=== PATIENT | female | born 1955 | race African-American/Black ===

== ENCOUNTER 2017-04-04 10:08 | Emergency (ER) | payer MEDICAID ==
[~2017-04-04 10:08] MED LIST: ATEN100T PO; IBUP-675 PO; NIFE60TA81 PO; VALS80TA2 PO
[2017-04-04] MEDS ORDERED: LORA10TA7 PO (10:13)
[2017-04-04] MEDS ORDERED: SERT100T12 PO (10:13)
[2017-04-04] MEDS ORDERED: LOSA50TA37 PO (10:13)
[2017-04-04 11:34] LABS: BASOPHILS % (AUTO) 0.7 % (0.0-2.0); EOSINOPHILS % (AUTO) 3.7 % (1.0-6.0); HEMOGLOBIN 11.6 g/dL (12.0-16.0); LYMPHOCYTES # (AUTO) 1.9 K/uL (1.0-4.8); MEAN CORPUSCULAR HEMOGLOBIN 27.3 pg (26.0-34.0); MEAN CORPUSCULAR HGB CONC 33.2 G/dL (31.0-37.0); MEAN CORPUSCULAR VOLUME 82 fL (80-100); MONOCYTES # (AUTO) 0.5 K/uL (0.1-1.0); NEUTROPHILS % (AUTO) 59.6 % (40.0-70.0); PLATELET COUNT (AUTO) 340 K/uL (150-450); RED BLOOD CELL COUNT(AUTO) 4.25 MIL/uL (4.00-5.20); RED CELL DISTRIBUTION WIDTH 15.2 % (11.5-14.5); WHITE BLOOD COUNT (AUTO) 6.7 K/uL (4.5-11.0)
[2017-04-04 11:45] LABS: ANION GAP 7 mmol/L (8-16); CALCIUM, TOTAL 8.9 mg/dL (8.8-10.5); CARBON DIOXIDE 29 mmol/L (22-29); CHLORIDE 104 mmol/L (98-107); GLOMERULAR FILTR. RATE CALC > 60 mL/min (>60); POTASSIUM 3.9 mmol/L (3.5-5.1); SODIUM SERUM 140 mmol/L (136-145); UREA NITROGEN, BLOOD 14 mg/dL (7-18)
[2017-04-04 11:50] LABS: ALANINE AMINOTRANSFERASE 32 U/L (12-78); ALBUMIN 3.6 g/dL (3.4-5.0); ASPARTATE AMINOTRANSFERASE 27 U/L (15-37); BILIRUBIN,TOTAL 0.3 mg/dL (0.1-1.0); TOTAL PROTEIN, SERUM 6.7 g/dL (6.4-8.2)
[2017-04-04 12:15] VITALS: BP 142/85
== END 2017-04-04 12:33 | disposition home or self-care (01) ==
LOC: EMS 10:14
DX: L30.9 Dermatitis, unspecified (principal); F41.9 Anxiety disorder, unspecified; F17.210 Nicotine dependence, cigarettes, uncomplicated; I10 Essential (primary) hypertension
CPT/HCPCS: 93005; 99285

== ENCOUNTER 2017-06-05 09:52 | Emergency (ER) | payer MEDICAID ==
[~2017-06-05] VITALS: Ht 162.6 cm; Wt 100.0 kg
[~2017-06-05 09:52] MED LIST changes: +LORA10TA7 PO; +LOSA50TA37 PO; +SERT100T12 PO; -VALS80TA2 PO
[2017-06-05] MEDS ORDERED: PredniSONE 20 MG TABLET PO ONE (10:15)
[2017-06-05] MEDS ORDERED: HydrOXYzine HCL 25 MG TABLET PO ONE (10:15)
[2017-06-05 12:23] VITALS: BP 151/91
== END 2017-06-05 12:27 | disposition home or self-care (01) ==
LOC: EMS 09:54
DX: T78.40XA Allergy, unspecified, initial encounter (principal); I10 Essential (primary) hypertension; F17.210 Nicotine dependence, cigarettes, uncomplicated; Z88.8 Allergy status to other drugs, medicaments and biological substances
CPT/HCPCS: 99283; J7512

== ENCOUNTER 2017-08-12 09:39 | Emergency (ER) | payer MEDICAID ==
[~2017-08-12] VITALS: Ht 157.5 cm; Wt 82.0 kg
[~2017-08-12 09:39] MED LIST changes: -IBUP-675 PO; -LORA10TA7 PO
[2017-08-12] MEDS ORDERED: HYDR-3110 PO (09:52)
[2017-08-12] MEDS ORDERED: LORA10TA7 PO (09:52)
[2017-08-12] MEDS ORDERED: HYDR25TA PO (10:10)
[2017-08-12] MEDS ORDERED: PredniSONE 20 MG TABLET PO ONE (10:45)
[2017-08-12] MEDS ORDERED: DiphenhydrAMINE/ZINC ACET 30 GM CREAM TP ONE ×2 (10:45)
[2017-08-12 11:45] VITALS: BP 152/88
== END 2017-08-12 11:52 | disposition home or self-care (01) ==
LOC: EMS 09:40
DX: L23.9 Allergic contact dermatitis, unspecified cause (principal); I10 Essential (primary) hypertension; F17.210 Nicotine dependence, cigarettes, uncomplicated; Z88.8 Allergy status to other drugs, medicaments and biological substances
CPT/HCPCS: 99283; 99406; J7512

== ENCOUNTER 2017-08-19 07:46 | Emergency (ER) | payer MEDICAID ==
[~2017-08-19] VITALS: Ht 157.5 cm; Wt 86.4 kg
[~2017-08-19 07:46] MED LIST changes: +HYDR-3110 PO; +HYDR25TA PO; +LORA10TA7 PO; -LOSA50TA37 PO
[2017-08-19] MEDS ORDERED: ACET-784 PO (07:55)
[2017-08-19] MEDS ORDERED: PredniSONE 20 MG TABLET PO ONE (08:45)
[2017-08-19] MEDS ORDERED: LORazepam 1 MG TABLET PO ONE (08:45)
[2017-08-19] MEDS ORDERED: DiphenhydrAMINE HCL 50 MG/ML VIAL IM ONE (08:45)
[2017-08-19 09:59] VITALS: BP 149/103
== END 2017-08-19 10:02 | disposition home or self-care (01) ==
LOC: EMS 07:48
DX: L30.9 Dermatitis, unspecified (principal); I10 Essential (primary) hypertension; F17.210 Nicotine dependence, cigarettes, uncomplicated; Z88.8 Allergy status to other drugs, medicaments and biological substances
CPT/HCPCS: 96372; 99283; 99406; J1200; J7512

== ENCOUNTER 2018-10-02 15:14 | Emergency (ER) | payer MEDICAID ==
[~2018-10-02] VITALS: Ht 157.5 cm; Wt 86.4 kg
[~2018-10-02 15:14] MED LIST changes: +ACET-784 PO
[2018-10-02] MEDS ORDERED: PERTUSS(ACELL),DIPH,TET VAC/PF 0.5 ML VIAL IM ONE (16:45)
[2018-10-02] MEDS ORDERED: LIDOCAINE 1% 10 ML VIAL INJ ONE (17:00)
[2018-10-02 17:05] VITALS: BP 124/89
[2018-10-02] MEDS ORDERED: BACITRACIN 0.9 GM PACKET OINTMENT TP ONE (17:45)
== END 2018-10-02 18:19 | disposition home or self-care (01) ==
LOC: EMS 15:15
DX: S51.011A Laceration without foreign body of right elbow, initial encounter (principal); I10 Essential (primary) hypertension; Z88.8 Allergy status to other drugs, medicaments and biological substances; Z79.899 Other long term (current) drug therapy; F17.210 Nicotine dependence, cigarettes, uncomplicated; W01.198A Fall on same level from slipping, tripping and stumbling with subsequent striking against other object, initial encounter; Y93.89 Activity, other specified; Y92.89 Other specified places as the place of occurrence of the external cause; Y99.8 Other external cause status
CPT/HCPCS: 12002; 73080; 90471; 90715; 99283; J3490

== ENCOUNTER 2019-08-30 17:35 | Emergency (ER) | payer MEDICAID ==
[~2019-08-30] VITALS: Ht 157.5 cm; Wt 86.4 kg
[~2019-08-30 17:35] MED LIST changes: -HYDR-3110 PO; +HYDR-3831 PO
[2019-08-30] MEDS ORDERED: FentaNYL CITRATE-PF 100 MCG/2 ML VIAL IVP ONE (17:45)
[2019-08-30 19:56] VITALS: BP 145/83
== END 2019-08-30 20:00 | disposition home or self-care (01) ==
LOC: EMS 17:37
DX: S43.101A Unspecified dislocation of right acromioclavicular joint, initial encounter (principal); F17.210 Nicotine dependence, cigarettes, uncomplicated; I10 Essential (primary) hypertension; Z88.8 Allergy status to other drugs, medicaments and biological substances; W01.0XXA Fall on same level from slipping, tripping and stumbling without subsequent striking against object, initial encounter; Y93.89 Activity, other specified; Y92.89 Other specified places as the place of occurrence of the external cause; Y99.8 Other external cause status
CPT/HCPCS: 23650; 73030; 99284; J3010

== ENCOUNTER 2024-05-29 15:34 | Emergency (ER) | payer MEDICARE, OTHER ==
[~2024-05-29] VITALS: Ht 152.4 cm; Wt 83.0 kg
[2024-05-29 15:40] VITALS: TEMP 99.2
[2024-05-29] MEDS ORDERED: CHLO25TA3 PO (15:59)
[2024-05-29] MEDS ORDERED: AMLO10TA55 PO (15:59)
[2024-05-29] MEDS ORDERED: ATOR20TA65 PO (15:59)
[2024-05-29] MEDS ORDERED: METF-444 PO (15:59)
[2024-05-29] MEDS: KETOROLAC TROMETHAMINE 30 MG/ML VIAL IM ONE (16:19)
[2024-05-29] MEDS: HYDROCODONE/ACETAMINOPHEN 5-325 MG TABLET PO ONE (17:12)
[2024-05-29 18:00] VITALS: BP 115/41; PULSE 75; RESP 15; O2SAT 93
[2024-05-29] MEDS ORDERED: HYDR-4062 PO (18:04)
== END 2024-05-29 18:35 | disposition home or self-care (01) ==
LOC: EMS 15:34
DX: M17.11 Unilateral primary osteoarthritis, right knee (principal); I10 Essential (primary) hypertension; F17.210 Nicotine dependence, cigarettes, uncomplicated; Z88.8 Allergy status to other drugs, medicaments and biological substances; Z79.84 Long term (current) use of oral hypoglycemic drugs; Z85.3 Personal history of malignant neoplasm of breast
CPT/HCPCS: 99283; 73562; 96372; J1885

== ENCOUNTER 2024-07-14 10:03 | Emergency (ER) | payer MEDICARE, OTHER ==
[~2024-07-14] VITALS: Ht 160 cm; Wt 84.1 kg
[~2024-07-14 10:03] MED LIST changes: -ACET-784 PO; +AMLO10TA55 PO; -ATEN100T PO; +ATOR20TA65 PO; +CHLO25TA3 PO; -HYDR-3831 PO; +HYDR-4062 PO; -HYDR25TA PO; -LORA10TA7 PO; +METF-444 PO; -NIFE60TA81 PO; -SERT100T12 PO
[2024-07-14] MEDS ORDERED: OXYC5 PO (12:37)
[2024-07-14 12:45] VITALS: BP 134/84; PULSE 98; RESP 17; O2SAT 97
[2024-07-14] MEDS: OxyCODONE HCL/ACETAMINOPHEN 5-325 MG TABLET PO ONE (12:53)
== END 2024-07-14 13:04 | disposition home or self-care (01) ==
LOC: EMS 10:12
DX: G89.18 Other acute postprocedural pain (principal); I10 Essential (primary) hypertension; F17.210 Nicotine dependence, cigarettes, uncomplicated; Z85.3 Personal history of malignant neoplasm of breast; Z79.84 Long term (current) use of oral hypoglycemic drugs; Z96.652 Presence of left artificial knee joint
CPT/HCPCS: 99283; 99406

== ENCOUNTER 2024-11-21 08:53 | Emergency (ER) | payer MEDICARE, OTHER ==
[~2024-11-21] VITALS: Ht 157.5 cm; Wt 77.3 kg
[~2024-11-21 08:53] MED LIST changes: -HYDR-4062 PO; +OXYC5 PO
[2024-11-21 09:02] VITALS: BP 118/78; PULSE 84; RESP 18; TEMP 98.2; O2SAT 99
[2024-11-21] MEDS ORDERED: DUPI200S SQ (09:02)
[2024-11-21] MEDS ORDERED: OXYC-38 PO (09:16)
[2024-11-21] MEDS ORDERED: POLY119P3 PO (09:16)
== END 2024-11-21 09:41 | disposition home or self-care (01) ==
LOC: EMS 09:03
DX: M17.11 Unilateral primary osteoarthritis, right knee (principal); I10 Essential (primary) hypertension; E11.9 Type 2 diabetes mellitus without complications; F17.210 Nicotine dependence, cigarettes, uncomplicated; Z79.84 Long term (current) use of oral hypoglycemic drugs; Z88.8 Allergy status to other drugs, medicaments and biological substances; Z85.3 Personal history of malignant neoplasm of breast
CPT/HCPCS: 82962; 99283

== ENCOUNTER 2025-03-29 08:00 | Emergency (ER) | payer MEDICARE, OTHER ==
[~2025-03-29] VITALS: Ht 152.4 cm; Wt 75.5 kg
[~2025-03-29 08:00] MED LIST changes: +DUPI200S SQ; +OXYC-38 PO; -OXYC5 PO; +POLY119P3 PO
[2025-03-29 08:08] VITALS: TEMP 97.7
[2025-03-29] MEDS ORDERED: METF-1211 PO (08:16)
[2025-03-29] MEDS ORDERED: CALC-1000 PO (08:16)
[2025-03-29] MEDS ORDERED: FERR325T27 PO (08:16)
[2025-03-29 09:45] VITALS: BP 139/85; PULSE 71; RESP 19; O2SAT 99
[2025-03-29] MEDS: ACETAMINOPHEN 500 MG TABLET PO ONE (10:34)
== END 2025-03-29 10:57 | disposition home or self-care (01) ==
LOC: EMS 08:00
DX: S46.912A Strain of unspecified muscle, fascia and tendon at shoulder and upper arm level, left arm, initial encounter (principal); M25.511 Pain in right shoulder; F17.210 Nicotine dependence, cigarettes, uncomplicated; E11.9 Type 2 diabetes mellitus without complications; I10 Essential (primary) hypertension; Z85.3 Personal history of malignant neoplasm of breast; Z98.890 Other specified postprocedural states; Z79.899 Other long term (current) drug therapy; Z88.5 Allergy status to narcotic agent; W22.8XXA Striking against or struck by other objects, initial encounter; Y93.89 Activity, other specified; Y92.89 Other specified places as the place of occurrence of the external cause; Y99.8 Other external cause status
CPT/HCPCS: 71045; 71250; 82962; 99284